=== PATIENT | male | born 1965 | race Caucasian/White ===

== ENCOUNTER 2020-01-19 17:57 | Emergency (ER) | payer OTHER ==
[~2020-01-19] VITALS: Ht 177.8 cm; Wt 109.2 kg
[2020-01-19] MEDS ORDERED: ONDANSETRON PF 4 MG/2 ML VIAL. ONE (18:19)
[2020-01-19] MEDS ORDERED: KETOROLAC 30 MG/ML VIAL. ONE (18:19)
[2020-01-19] MEDS ORDERED: ONDANSETRON PF 4 MG/2 ML VIAL. IVP ONE ×2 (18:30→19:30)
[2020-01-19] MEDS ORDERED: KETOROLAC 30 MG/ML VIAL. IVP ONE (18:30)
[2020-01-19] MEDS ORDERED: IV NORMAL SALINE 500ML 1,000 ML IV ONE (18:45)
[2020-01-19] MEDS ORDERED: IV RINGERS SOLUTION,LACTATED 1,000 ML IV ONE (19:00)
--- NOTE | 2020-01-19 19:19 | PHYS DOC ---
Past History Past Medical History: Kidney Stones General Adult EDM: Chief Complaint: FLANK PAIN HPI: HPI: ".. It feels like a kidney stone.. Roselyn started yesterday.. Rt. lower abdomen pain... I vomited.. but I ve had 5 stone s before... My dad had them, brother had them..Sister hand them..I may have gotten a little dry... " Patient is a 54 year old male who presents with above hx and complaints of right flank pain. Patient has history of 5 previous episodes of kidney stones and required either admission or ED evaluation. Patient does admit to poor p.o. intake today which probably led to kidney stone formation. Patient currently does not have a urologist he follows with. There is a strong family history of kidney stones both with brother, father, sister,. Patient states symptoms initially started yesterday. But currently pain is rated 10 out of 10 any very nauseated. Patient denies any fever or chills. Patient denies any recent travel. Patient denies any specific ill contacts. Patient denies any history immunosuppression. Patient only follows with Dr. Cid Review of Systems: Review of Systems: Constitutional: Denies fever or chills Eyes: Denies change in visual acuity HENT: Denies nasal congestion or sore throat Respiratory: Denies cough or shortness of breath Cardiovascular: Denies chest pain or edema GI: Complains of abdominal pain, nausea,. Denies vomiting, bloody stools or diarrhea : Denies dysuria Musculoskeletal: Complains of right flank and lower abdomen back pain. Denies joint pain Integument: Denies rash Neurologic: Denies headache, focal weakness or sensory changes Endocrine: Denies polyuria or polydipsia Lymphatic: Denies swollen glands Psychiatric: Denies depression or anxiety Heart Score: HEART Score for Chest Pain: HEART Score for Chest Pain Response (Comments) Value History Slighlty/Non-Suspicious 0 ECG Nonspecific Repolarizatio 1 Age >45 - < 65 1 Risk Factors 1 or 2 Risk Factors 1 Troponin < Normal Limit 0 Total 3 Risk Factors: Risk Factors: DM, Current or recent (<one month) smoker, HTN, HLP, family history of CAD, obesity. Risk Scores: Score 0 - 3: 2.5% MACE over next 6 weeks - Discharge Home Score 4 - 6: 20.3% MACE over next 6 weeks - Admit for Clinical Observation Score 7 - 10: 72.7% MACE over next 6 weeks - Early Invasive Strategies Family History: Family History: Multiple family members with kidney stones, brother, sister, father, Current Medications: Current Meds: Current Medications Medications (Trade) Dose Ordered Sig/Jose Start Time Stop Time Status Last Admin Dose Admin Ketorolac Tromethamine (Toradol 30mg Vial) 30 mg 1X ONCE 01/19/20 18:30 01/19/20 18:31 DC 01/19/20 18:24 30 MG Lactated Ringer's 1,000 ml @ 1,000 mls/hr 1X ONCE 01/19/20 19:00 01/19/20 19:59 Ondansetron HCl (Zofran) 8 mg 1X ONCE 01/19/20 18:30 01/19/20 18:31 DC 01/19/20 18:24 8 MG Sodium Chloride 1,000 ml @ 1,000 mls/hr 1X ONCE 01/19/20 18:45 01/19/20 19:44 Allergies: Allergies: Allergies Coded Allergies Type Severity Reaction Last Updated Verified No Known Drug Allergies 01/19/20 No Physical Exam: PE: Constitutional: In acute distress, non-toxic appearance. [] HENT: Normocephalic, atraumatic, bilateral external ears normal, oropharynx moist, no oral exudates, nose normal. [] Eyes: PERRLA, EOMI, conjunctiva normal, no discharge. [] Neck: Normal range of motion, no tenderness, supple, no stridor. [] Cardiovascular: Tachycardia heart rate regular rhythm, no murmur [] Lungs & Thorax: Bilateral breath sounds clear to auscultation [] Abdomen: Bowel sounds decreased soft, right flank tenderness, no masses, no pulsatile masses. [] Rebound to right flank and right lower abdomen. Skin: Warm, slightly diaphoretic, no erythema, no rash. [] Back: No tenderness, right CVA tenderness. [] Extremities: No tenderness, no cyanosis, no clubbing, ROM intact, no edema. [] No psoas sign. Neurologic: Alert and oriented X 3, normal motor function, normal sensory function, no focal deficits noted. [] Psychologic: Affect anxioul, judgement normal, mood normal. [] EKG: EKG: My interpretation EKG shows a sinus rhythm at 71 bpm. Some mild leftward axis. No findings of acute STEMI with contralateral changes. [] Radiology/Procedures: Radiology/Procedures: [address] [address] IMAGING REPORT Signed PATIENT: PARRIS DE LUNA PACCOUNT: [id number] : 1965 LOCATION: ER AGE: 54 SEX: M EXAM STATUS: REG ER ORD. PHYSICIAN: CHARLES POLLOCK MD REASON: abdomen pain,- rt PROCEDURE: ACUTE ABDOMEN SERIES Exam: Acute abdominal series INDICATION: Abdominal pain TECHNIQUE: Frontal view of chest with upright and supine views of the abdomen Comparisons: None FINDINGS: The cardiomediastinal silhouette and pulmonary vessels are within normal limits. The lung and pleural spaces are clear. Air and stool are noted throughout the colon to level the rectum in a nonobstructive bowel gas pattern. No suspicious masses or calcifications. Visualized osseous structures are unremarkable. IMPRESSION: 1. No acute cardiopulmonary process. 2. Nonobstructive bowel gas pattern. Electronically signed by: Cesar Banks MD (01/19/2020 8:25 PM) [id number] DICTATED AND SIGNED BY: CESAR BANKS MD DATE: 01/19/202024 CC: CHARLES POLLOCK MD; ANGELA CID MD ~ [] IMAGING REPORT Signed PATIENT: PARRIS DE LUNA PACCOUNT: [id number] : 1965 LOCATION: ER AGE: 54 SEX: M EXAM STATUS: REG ER ORD. PHYSICIAN: CHARLES POLLOCK MD REASON: Severe right sided abdomen pain, history of kidney stones PROCEDURE: CT ABDOMEN PELVIS WO CONTRAST Exam: CT of abdomen and pelvis without contrast INDICATION: Severe right-sided abdominal pain TECHNIQUE: Sequential axial images through the abdomen and pelvis obtained without IV contrast. Sagittal and coronal reformatted images were reconstructed from the axial data and reviewed. Comparisons: None FINDINGS: Heart size is normal. No pericardial effusion. Strandy opacities at the dependent portion lungs likely representing atelectasis. No pleural effusion. Evaluation of the solid organs is limited secondary to noncontrast technique. Liver, spleen, pancreas, gallbladder and adrenals are unremarkable. There is moderate right-sided hydronephrosis. 5 mm calculus at the distal right ureter. Nonobstructing 2 mm calculus at the mid right kidney. Bladder is partially distended and not well evaluated. Prostate is not enlarged. Few scattered diverticula noted within the descending and sigmoid colon without evidence of acute diverticulitis. Remainder of the large and small bowel are unremarkable. Appendix is normal. No free intra-abdominal air or fluid. No obstruction. Abdominal aorta has a normal course and caliber. No enlarged intra-abdominal lymph nodes are identified. No suspicious osseous lesions or acute fractures. IMPRESSION: A 5 mm obstructing calculus the distal right ureter with moderate right-sided hydronephrosis. Additional 2 mm nonobstructing right renal calculi is noted. Exposure: One or more of the following in the visualized dose reduction techniques were utilized for this examination: 1. Automated exposure control 2. Adjustment of the MA and/or KV according to patient size 3. Use of iterative of reconstructive technique Electronically signed by: Cesar Banks MD (01/19/2020 8:34 PM) [id number] DICTATED AND SIGNED BY: CESAR BANKS MD DATE: 01/19/202033 CC: CHARLES POLLOCK MD; ANGELA CID MD ~ Course & Med Decision Making: Course & Med Decision Making Pertinent Labs and Imaging studies reviewed. (See chart for details) Patient to push fluids. Patient to take Flomax at night. Patient warned that Flomax may cause hypotension. Patient to save stone if passed. Patient may take Vicoprofen up to 4 times a day for severe pain. Patient warned that the pain became more severe or unable to tolerate current course of treatment will need to present at a emergency department that has availability for urology and admission. Patient given referral for urology. Patient may take Zofran 8 mg up to 4 times a day for actively vomiting. Impression: 1. Renal Colic 2. Distal Rt. Kidney stone with mild [place] nephrosis [] Michaela Disclaimer: Michaela Disclaimer: This electronic medical record was generated, in whole or in part, using a voice recognition dictation system. Departure Departure: Disposition: 01 HOME/RESIDENCE PRIOR TO ADM Condition: STABLE Referrals: ANGELA CID MD (PCP) Scripts Tamsulosin Hcl (FLOMAX) 0.4 Mg Cap.er.24h 0.4 MG PO HS for kidneystone, #30 CAP.SR Prov: CHARLES POLLOCK MD 01/19/20 Hydrocodone/Ibuprofen (HYDROCODONE-IBUPROFEN 7.5-200 ) 1 Each Tablet 1 TAB PO PRN Q6HRS PRN for PAIN, #30 TAB 0 Refills Prov: CHARLES POLLOCK MD 01/19/20 Ondansetron Hcl (ZOFRAN) 8 Mg Tablet 8 MG PO QIDPRN PRN for nv, #30 BOTTLE Prov: CHARLES POLLOCK MD 01/19/20 Justification of Admission: Justification of Admission: Justification of Admission Dx: N/A Michaela Disclaimer This chart was dictated in whole or in part using Voice Recognition software in a busy, high-work load, and often noisy Emergency Department environment. It may contain unintended and wholly unrecognized errors or omissions. Dragon Disclaimer This chart was dictated in whole or in part using Voice Recognition software in a busy, high-work load, and often noisy Emergency Department environment. It may contain unintended and wholly unrecognized errors or omissions. CHARLES POLLOCK MD Jan 19, 2020 19:19
[2020-01-19] MEDS ORDERED: IV RINGERS SOLUTION,LACTATED 1,000 ML IV SCH (19:26)
[2020-01-19] MEDS ORDERED: FAMOTIDINE 20 MG/2 ML VIAL IVP ONE (19:30)
[2020-01-19] MEDS ORDERED: MORPHINE SULFATE 10 MG/ML SYRINGE. SQ ONE (19:30)
[2020-01-19 19:37] LABS: BARBITURATES NEG (NEG); BENZODIAZEPINES NEG (NEG); CANNABINOIDS NEG (NEG); COCAINE NEG (NEG); METHADONE NEG (NEG); OPIATES NEG (NEG); PHENCYCLIDINE NEG (NEG)
[2020-01-19 19:39] LABS: BACTERIA,URINE 0 /HPF (0-FEW); BILIRUBIN,URINE NEG (NEG); CLARITY,URINE CLEAR; COLOR,URINE YELLOW; GLUCOSE,URINE NEG (NEG); NITRITE,URINE NEG (NEG); RBC,URINE OCC /HPF (0-2); SQUAMOUS EPITHELIAL CELL,UR OCC /LPF; UROBILINOGEN,URINE 0.2 mg/dL (0.2 mg/dL); WBC,URINE 0 /HPF (0-4)
--- NOTE | 2020-01-19 19:39 | EKG ---
[address] [address] Test Date: 2020-01-19 Test Time: 19:35:38 Pat Name: PARRIS DE LUNA Department: Room: Gender: M [employer]: : 1965 Requested By: CHARLES POLLOCK Order Number: [id number] Reading MD: Measurements Intervals [place] Rate: 71 P: 40 CA: 170 QRS: -28 QRSD: 96 T: 15 QT: 402 QTc: 437 Interpretive Statements SINUS RHYTHM LEFTWARD AXIS OTHERWISE NORMAL ECG RI6.02 No previous ECG available for comparison
[2020-01-19 19:41] LABS: AMPHETAMINE/METHAMPHETAMINE NEG (NEG)
[2020-01-19 19:41] LABS: CALCIUM 8.6 mg/dL (8.5-10.1); CREATININE 2.1 mg/dL (0.7-1.3); POTASSIUM 3.6 mmol/L (3.5-5.1)
[2020-01-19 19:47] LABS: ALBUMIN 3.8 g/dL (3.4-5.0); DIRECT BILIRUBIN 0.1 mg/dL (0.0-0.2); TOTAL BILIRUBIN 0.5 mg/dL (0.2-1.0); TOTAL PROTEIN 7.2 g/dL (6.4-8.2)
[2020-01-19 19:57] LABS: BASO # 0.1 x10^3/uL (0.0-0.2); BASO % 1 % (0-3); EOS # 0.4 x10^3/uL (0.0-0.7); EOS % 4 % (0-3); HEMATOCRIT 44.2 % (39.0-53.0); HEMOGLOBIN 14.7 g/dL (13.0-17.5); LYMPH % 31 % (24-48); MEAN CORPUSCULAR HEMOGLOBIN 29 pg (25-35); MEAN CORPUSCULAR HGB CONC 33 g/dL (31-37); MEAN CORPUSCULAR VOLUME 87 fL (79-100); MONO % 11 % (0-9); NEUT # 5.3 x10^3uL (1.8-7.7); NEUT % 54 % (31-73); PLATELET COUNT 274 x10^3/uL (140-400); RED BLOOD COUNT 5.06 x10^6/uL (4.30-5.70); RED CELL DISTRIBUTION WIDTH 13.5 % (11.5-14.5); WHITE BLOOD COUNT 9.9 x10^3/uL (4.0-11.0)
--- NOTE | 2020-01-19 20:28 | RAD ---
Exam: Acute abdominal series INDICATION: Abdominal pain TECHNIQUE: Frontal view of chest with upright and supine views of the abdomen Comparisons: None FINDINGS: The cardiomediastinal silhouette and pulmonary vessels are within normal limits. The lung and pleural spaces are clear. Air and stool are noted throughout the colon to level the rectum in a nonobstructive bowel gas pattern. No suspicious masses or calcifications. Visualized osseous structures are unremarkable. IMPRESSION: 1. No acute cardiopulmonary process. 2. Nonobstructive bowel gas pattern. Electronically signed by: Cesar Urias MD (01/19/2020 8:25 PM) [id number]
--- NOTE | 2020-01-19 20:38 | RAD ---
Exam: CT of abdomen and pelvis without contrast INDICATION: Severe right-sided abdominal pain TECHNIQUE: Sequential axial images through the abdomen and pelvis obtained without IV contrast. Sagittal and coronal reformatted images were reconstructed from the axial data and reviewed. Comparisons: None FINDINGS: Heart size is normal. No pericardial effusion. Strandy opacities at the dependent portion lungs likely representing atelectasis. No pleural effusion. Evaluation of the solid organs is limited secondary to noncontrast technique. Liver, spleen, pancreas, gallbladder and adrenals are unremarkable. There is moderate right-sided hydronephrosis. 5 mm calculus at the distal right ureter. Nonobstructing 2 mm calculus at the mid right kidney. Bladder is partially distended and not well evaluated. Prostate is not enlarged. Few scattered diverticula noted within the descending and sigmoid colon without evidence of acute diverticulitis. Remainder of the large and small bowel are unremarkable. Appendix is normal. No free intra-abdominal air or fluid. No obstruction. Abdominal aorta has a normal course and caliber. No enlarged intra-abdominal lymph nodes are identified. No suspicious osseous lesions or acute fractures. IMPRESSION: A 5 mm obstructing calculus the distal right ureter with moderate right-sided hydronephrosis. Additional 2 mm nonobstructing right renal calculi is noted. Exposure: One or more of the following in the visualized dose reduction techniques were utilized for this examination: 1. Automated exposure control 2. Adjustment of the MA and/or KV according to patient size 3. Use of iterative of reconstructive technique Electronically signed by: Cesar Urias MD (01/19/2020 8:34 PM) [id number]
[2020-01-19] MEDS ORDERED: TAMS0.4C97 PO (21:33)
[2020-01-19] MEDS ORDERED: ONDA8TAB9 PO (21:33)
[2020-01-19] MEDS ORDERED: HYDR-1179 PO (21:33)
[2020-01-19] MEDS ORDERED: TAMSULOSIN 0.4 MG CAP.ER.24H. PO ONE (22:00)
[2020-01-19 22:35] VITALS: BP 129/87
== END 2020-01-19 22:42 | disposition home or self-care (01) ==
LOC: ER 17:57
DX: N13.2 Hydronephrosis with renal and ureteral calculous obstruction (principal)
CPT/HCPCS: 36415; 74022; 74176; 80048; 80076; 80307; 81001; 85025; 85610; 85730; 93005; 96374; 96375; 99285; J1885; J2405; J3490; J7120